=== PATIENT | male | born 1985 | race Caucasian/White ===

== ENCOUNTER 2019-01-08 08:22 | Outpatient (CLI) | payer OTHER ==
--- NOTE | 2019-01-08 10:54 | PET ---
Nuclear medicine FDG PET/CT: (Positron emission tomography and computed tomography) DATE: 01/08/2019 HISTORY: 33 year old male with "nodular sclerosis classical Hodgkin's lymphoma" subsequent scanning. Restaging . COMPARISON: 09/17/2016 TECHNIQUE: IV injection of F-18 fluorodeoxyglucose (FDG) dose: 13 mCi. PET scan and attenuation correction CT performed from skull base to proximal thighs. PET scan and attenuation correction CT thinner slices performed through head and neck. FINDINGS: SUV (standard uptake values) numbers given are maximum SUVs. QCLR used. There is no abnormally FDG avid lesions, either [place] or extranodal, in the neck, chest, abdomen, or pelvis. The previously demonstrated diffusely increased bone marrow uptake due to bone marrow stimulation med ications, has resolved. Attenuation correction CT demonstrates right-sided implantable vascular access port and cholecystecto my clips, but is otherwise normal. Deauville score 1. Complete response to therapy. IMPRESSION: Negative
== END 2019-01-08 08:23 | disposition home or self-care (01) ==
LOC: PET 08:22
PROVIDERS: ATTEND Internal Medicine Hematology & Oncology
DX: C81.12 Nodular sclerosis Hodgkin lymphoma, intrathoracic lymph nodes (principal)
CPT/HCPCS: 78815; A9552

== ENCOUNTER 2019-07-02 19:07 | Inpatient (IN) | payer OTHER ==
[~2019-07-02 19:07] MED LIST: Iopamidol-370 76% 500 ML 1 ML ONE
[2019-07-02 19:35] LABS: #Eosinphils 0.1 thou/uL (0.0-0.7); #Lymphocytes 1.5 thou/uL (1.20-3.40); #Neutrophils 14.2 thou/uL (1.40-6.50); %Basophils 0.2 % (0.0-1.0); %Eosinophils 0.9 % (0.0-10.0); %Lymphocytes 8.9 % (21.0-51.0); %Monocytes 5.8 % (0.0-10.0); %Neutrophils 84.3 % (42.0-75.0); Hemoglobin 17.9 g/dL (14.0-18.0); Mean Corpuscular HGB CONC 34.6 g/dL (32.0-36.0); Mean Corpuscular Volume 95.1 fL (78.0-98.0); Mean Platelet Volume 8.7 fL (7.4-10.4); Platelet Count 137 thou/uL (130-400); RBC Distribution Width 11.5 % (11.5-14.5); Red Blood Cell (RBC) Count 5.44 mill/uL (4.70-6.10); White Blood Cell (WBC) Count 16.8 thou/uL (4.8-10.8)
--- NOTE | 2019-07-02 19:47 | RAD ---
Chest one view HISTORY: Chest pain. COMPARISON: 05/03/2016. FINDINGS: Cardiac silhouette is magnified by projection. Pulmonary vasculature is unremarkable. Media stinum is midline with a right subclavian Port-A-Cath. No lobar consolidation or evidence of pneumothorax. IMPRESSION: No active cardiopulmonary abnormalities are demonstrated.
[2019-07-02 19:59] LABS: ALT (SGPT) 61 U/L (8-55); AST (SGOT) 23 U/L (5-34); Albumin 4.5 g/dL (3.5-5.0); Alkaline Phosphatase 72 U/L (40-110); Anion Gap 13 mmol/L (10-20); BUN (Urea Nitrogen) 12 mg/dL (8.9-20.6); Bilirubin, Total 2.6 mg/dL (0.2-1.2); CK (CPK) 68 U/L (30-200); Calc. Creatinine Clearance 0 mL/min (70-130); Calcium 9.4 mg/dL (7.8-10.44); Carbon Dioxide 22 mmol/L (22-29); Chloride 104 mmol/L (98-107); Estimated GFR-MDRD 85; Globulin 2.4 g/dL (2.4-3.5); Glucose 118 mg/dL (70-105); Lipase 264 U/L (8-78); Potassium 3.8 mmol/L (3.5-5.1); Protein, Total 6.9 g/dL (6.0-8.3); Sodium 135 mmol/L (136-145)
--- NOTE | 2019-07-02 22:03 | CT ---
CT abdomen and pelvis with IV contrast HISTORY: Left upper quadrant pain. FINDINGS: Mild atelectasis at the lung bases. Gallbladder is surgically absent. Small splenule lies i mmediately posterior to the spleen. There is stranding in the intra-abdominal fat of the left upper quadrant. Coronal images show that it extends to the upper margin of the pancreas but does not appear to arise from the pancreas. The fat stranding abuts the lateral aspect of the gastric fundus and extends inferiorly towards the upper left:. There is subtle circumferential wall thickening involving the splenic flexure of the colon and the left colon. The left upper quadrant fat stranding partially encircles the splenic flexure. No free air or significant free fluid. Urinary bladder is unremarkable. Degenerative changes lumbar spine with bilateral foraminal stenoses of the lowest 2 levels. IMPRESSION: Inflammation of the intra-abdominal fat of the left upper quadrant is favored to be assoc iated with long segment colitis most pronounced at the sigmoid colon and extending along the left colon. Cause is not evident.
[2019-07-02] MEDS ORDERED: Fentanyl 100 MCG/2 ML VIAL ONE (22:39)
[2019-07-02] MEDS ORDERED: metroNIDAZOLE 500 MG/100 ML BAG ONE (22:39)
[2019-07-02 23:06] LABS: Bilirubin Negative (Negative); Blood, Urine Negative (Negative); Clarity Clear (Clear); Glucose, Urine (Dipstick) Normal (Negative); Leukocyte Negative Leu/uL (Negative); Nitrite Negative (Negative); Protein, Urine (Dipstick) Negative (Neg-Trace); Urobilinogen Normal mg/dL (Less than 2)
[2019-07-03] MEDS ORDERED: Ondansetron ODT 4 MG TAB SL PRN (00:38)
[2019-07-03] MEDS ORDERED: Ondansetron PF 4 MG/2 ML Vial IVP PRN (00:38)
[2019-07-03] MEDS ORDERED: Sodium Chloride 0.9% 1,000 ML IV SCH ×2 (00:38→02:20)
[2019-07-03] MEDS ORDERED: Acetaminophen 325 MG TAB PO PRN ×2 (00:38→02:20)
[2019-07-03] MEDS ORDERED: HYDROcodone/Acetaminophen 5/325 mg Tablet PO PRN ×2 (00:38)
[2019-07-03 01:15] VITALS: BMI 32.1
[2019-07-03] MEDS ORDERED: Guaifenesin DM 100-10/5 ML UDCUP PO PRN (02:20)
[2019-07-03] MEDS ORDERED: Bisacodyl 10 MG SUPP PR PRN (02:20)
[2019-07-03] MEDS ORDERED: Ibuprofen 200 MG TAB PO PRN (02:20)
[2019-07-03] MEDS: Sodium Chloride 0.9% 1,000 ML IV SCH ×4 (02:32→17:57)
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
[2019-07-03] MEDS: HYDROcodone/Acetaminophen 5/325 mg Tablet PO PRN ×4 (04:36→18:38)
[2019-07-03 05:09] LABS: Amphetamine Not Detected (NotDetected); Barbiturates Screen Not Detected (NotDetected); Benzodiazepine Screen Not Detected (NotDetected); Cocaine Metabolite Screen Not Detected (NotDetected); Medtox Reader # READER 1; Methadone Not Detected (NotDetected); Methamphetamine Not Detected (NotDetected); Opiate Screen Detected (NotDetected); Phencyclidine (PCP) Not Detected (NotDetected); THC/Cannabinoid Screen Not Detected (NotDetected); Tricyclic Screen Not Detected (NotDetected)
[2019-07-03 05:10] LABS: Medtox Control Line Valid? VALID (VALID); Oxycodone Screen Not Detected (NotDetected)
[2019-07-03] MEDS: metroNIDAZOLE 500 MG in Premix Bag 1 BAG IVPB SCH ×3 (05:44→22:10)
[2019-07-03] MEDS ORDERED: metroNIDAZOLE 500 MG in Premix Bag 1 BAG IVPB SCH (06:00)
[2019-07-03 06:36] LABS: Anion Gap 9 mmol/L (10-20); BUN (Urea Nitrogen) 9 mg/dL (8.9-20.6); Calc. Creatinine Clearance 201 mL/min (70-130); Calcium 8.5 mg/dL (7.8-10.44); Carbon Dioxide 25 mmol/L (22-29); Chloride 105 mmol/L (98-107); Estimated GFR-MDRD Greater than 90; Glucose 107 mg/dL (70-105); Potassium 3.7 mmol/L (3.5-5.1); Sodium 135 mmol/L (136-145)
[2019-07-03 06:39] LABS: #Eosinphils 0.2 thou/uL (0.0-0.7); #Lymphocytes 1.1 thou/uL (1.20-3.40); #Monocytes 1.2 thou/uL (0.11-0.59); #Neutrophils 11.8 thou/uL (1.40-6.50); %Basophils 0.2 % (0.0-1.0); %Eosinophils 1.4 % (0.0-10.0); %Lymphocytes 7.9 % (21.0-51.0); %Monocytes 8.5 % (0.0-10.0); %Neutrophils 82.1 % (42.0-75.0); Band 9 % (5-11); Lymphocytes 6 % (21-51); MDiff Complete? YES; Mean Corpuscular HGB CONC 35.7 g/dL (32.0-36.0); Mean Corpuscular Hemoglobin 34.7 pg (27.0-31.0); Mean Corpuscular Volume 97.1 fL (78.0-98.0); Mean Platelet Volume 8.4 fL (7.4-10.4); Monocytes 7 % (0-10); Neutrophil 74 % (42-75); Platelet Count 105 thou/uL (130-400); Platelet Morphology Comment Appears Decreased; RBC Distribution Width 11.5 % (11.5-14.5); RBC Morphology Normal; Reactive Lymphocytes 4 % (0-10); Red Blood Cell (RBC) Count 4.62 mill/uL (4.70-6.10); White Blood Cell (WBC) Count 14.4 thou/uL (4.8-10.8)
[2019-07-03] MEDS ORDERED: Famotidine 20 MG TAB PO SCH (09:00)
[2019-07-03] MEDS: Enoxaparin Sodium 40 MG/0.4 ML SYRINGE SC SCH (09:40)
[2019-07-03] MEDS: Senokot S 8.6-50 MG TAB PO SCH ×2 (09:41→20:26)
--- NOTE | 2019-07-03 14:51 | PDOC.HOSPP ---
- Subjective Encounter Date: 07/03/19 Encounter Time: 10:45 Subjective: pt resting - jsut receiv'd pain med. tender on the Left abdomen. on BM today. - Objective Vital Signs & Weight: Vital Signs (12 hours) Temp Pulse Resp BP Pulse Ox 07/03/19 11:13 98.6 F 81 18 124/83 97 07/03/19 07:38 97.5 F L 84 18 132/85 94 L 07/03/19 04:30 99 F 81 18 121/81 96 Weight Admit Weight 250 lb Weight 250 lb I&O: 07/02/19 07/03/19 07/04/19 06:59 06:59 06:59 Output Total 725 Balance -725 Result Diagrams: 07/03/19 05:58 07/03/19 05:58 Hospitalist ROS - Medication Medications: Active Medications Generic Name Dose Route Start Last Admin Trade Name Freq PRN Reason Stop Dose Admin Hydrocodone Bitart/Acetaminophen 1 tab 07/03/19 02:20 07/03/19 14:42 [place] 5/325 PO 1 tab Q4H PRN Administration Moderate Pain (4-6) Enoxaparin Sodium 40 mg 07/03/19 09:00 07/03/19 09:40 Lovenox SC 40 mg 0900 YIMI Administration Famotidine 20 mg 07/03/19 09:00 07/03/19 09:40 Pepcid PO 20 mg BID YIMI Administration Ciprofloxacin/Dextrose 400 mg/ 200 mls @ 200 mls/hr 07/03/19 09:00 07/03/19 09:38 Device IVPB 200 mls Q12HR YIMI Administration Metronidazole 500 mg/ Device 100 mls @ 100 mls/hr 07/03/19 06:00 07/03/19 14: 41 IVPB 100 mls Q8HR YIMI Administration Sodium Chloride 1,000 mls @ 200 mls/hr 07/03/19 02:30 07/03/19 12:38 Normal Saline 0.9% IV 1,000 mls .Q5H YIMI Administration Ibuprofen 400 mg 07/03/19 02:20 07/03/19 07:14 Motrin PO 400 mg Q8H PRN Administration Mild Pain (1-3) Senna/Docusate Sodium 2 tab 07/03/19 09:00 07/03/19 09:41 Senokot S PO 2 tab BID YIMI Administration Sodium Chloride 10 ml 07/03/19 09:00 07/03/19 09:27 Flush - Normal Saline IVF Not Given Q12HR YIMI - Exam General Appearance: NAD Eye: PERRL, anicteric sclera ENT: normocephalic atraumatic Neck: supple, no thyromegaly Heart: RRR, normal peripheral pulses Respiratory: CTAB, normal chest expansion Gastrointestinal: tender to palpation Skin: normal turgor Neurological: cranial nerve grossly intact, no focal deficits Hosp A/P - Plan L sided colitis :Leukocytosis Acute pancreatitis --on cipro and flagyl --aggerssive hdyration -CLD -analgesics - follow w.. GI Hx of Hodgkins -on remission
[2019-07-03] MEDS ORDERED: Pantoprazole 40 MG VIAL IVP SCH (15:00)
[2019-07-04] MEDS: Sodium Chloride 0.9% 1,000 ML IV SCH ×4 (00:57→12:43)
[2019-07-04] MEDS: metroNIDAZOLE 500 MG in Premix Bag 1 BAG IVPB SCH ×3 (05:00→22:58)
[2019-07-04] MEDS: HYDROcodone/Acetaminophen 5/325 mg Tablet PO PRN ×2 (05:02→13:05)
[2019-07-04 05:13] LABS: #Eosinphils 0.3 thou/uL (0.0-0.7); #Lymphocytes 1.3 thou/uL (1.20-3.40); #Monocytes 1.3 thou/uL (0.11-0.59); #Neutrophils 10.5 thou/uL (1.40-6.50); %Lymphocytes 9.4 % (21.0-51.0); %Monocytes 9.9 % (0.0-10.0); %Neutrophils 78.7 % (42.0-75.0); Hemoglobin 14.9 g/dL (14.0-18.0); Mean Corpuscular HGB CONC 36.2 g/dL (32.0-36.0); Mean Corpuscular Hemoglobin 35.1 pg (27.0-31.0); Mean Corpuscular Volume 96.8 fL (78.0-98.0); Mean Platelet Volume 8.3 fL (7.4-10.4); Platelet Count 91 thou/uL (130-400); RBC Distribution Width 11.5 % (11.5-14.5); Red Blood Cell (RBC) Count 4.25 mill/uL (4.70-6.10); White Blood Cell (WBC) Count 13.4 thou/uL (4.8-10.8)
[2019-07-04 05:34] LABS: ALT (SGPT) 38 U/L (8-55); AST (SGOT) 18 U/L (5-34); Albumin 3.4 g/dL (3.5-5.0); Alkaline Phosphatase 57 U/L (40-110); Anion Gap 10 mmol/L (10-20); BUN (Urea Nitrogen) 7 mg/dL (8.9-20.6); Bilirubin, Total 2.5 mg/dL (0.2-1.2); Calc. Creatinine Clearance 199 mL/min (70-130); Calcium 8.5 mg/dL (7.8-10.44); Carbon Dioxide 24 mmol/L (22-29); Chloride 105 mmol/L (98-107); Estimated GFR-MDRD Greater than 90; Globulin 2.3 g/dL (2.4-3.5); Glucose 97 mg/dL (70-105); Lipase 62 U/L (8-78); Potassium 3.8 mmol/L (3.5-5.1); Protein, Total 5.7 g/dL (6.0-8.3); Sodium 135 mmol/L (136-145)
[2019-07-04] MEDS: Senokot S 8.6-50 MG TAB PO SCH ×2 (08:32→20:31)
[2019-07-04] MEDS: Enoxaparin Sodium 40 MG/0.4 ML SYRINGE SC SCH (08:32)
[2019-07-04] MEDS: Pantoprazole 40 MG VIAL IVP SCH (08:36)
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
--- NOTE | 2019-07-04 12:35 | PRG ---
DATE OF SERVICE: 07/04/2019 SUBJECTIVE: Mr. Latham states his pain is down to about 1. He is off pain medicine. He feels a lot better. The nurse asked if we can decrease his IV fluids as it is going at 200 an hour. OBJECTIVE: VITAL SIGNS: Overnight, T-max 100, presently 99.3. Pulse 96, blood pressure 130/83. ABDOMEN: Soft. There is mild tenderness in the left upper quadrant. There is no rebound or guarding. LABORATORY DATA: White count 13.4, hemoglobin 14, platelet count 91,000. Sodium 135, potassium 3.8. Liver function tests normal except for a bilirubin of 2.5. Lipase is down to 62. ASSESSMENT: Inflammation in the descending and splenic flexure region of the colon with some fat stranding. He had mildly elevated lipase that has resolved and his pain is better. Differential diagnosis includes a colitis versus diverticulitis. RECOMMENDATIONS: 1. Decrease IV fluids to 70 mL an hour. He is tolerating a soft diet. 2. If he continues to improve, could go home tomorrow, empiric treatment for diverticulitis and to have an outpatient colonoscopy in 4 to 6 weeks. We will follow along with you. Job ID: [id number]
--- NOTE | 2019-07-04 13:02 | PDOC.HOSPP ---
- Subjective Encounter Date: 07/04/19 Encounter Time: 12:59 Subjective: abd pain improved, some pain in L neck with inspiration - Objective Vital Signs & Weight: Vital Signs (12 hours) Temp Pulse Resp BP Pulse Ox 07/04/19 11:42 99.3 F 96 16 130/83 94 L 07/04/19 07:20 98.6 F 86 16 127/84 97 07/04/19 04:35 99.5 F 91 18 127/82 97 Weight Admit Weight 250 lb Weight 250 lb I&O: 07/03/19 07/04/19 07/05/19 06:59 06:59 06:59 Intake Total 5560 Output Total 725 Balance -725 5560 Result Diagrams: 07/04/19 04:59 07/04/19 04:59 Hospitalist ROS - Medication Medications: Active Medications Generic Name Dose Route Start Last Admin Trade Name Freq PRN Reason Stop Dose Admin Acetaminophen 650 mg 07/03/19 02:20 07/03/19 23:52 Tylenol PO 650 mg Q4H PRN Administration Headache/Fever/Mild Pain (1-3) Hydrocodone Bitart/Acetaminophen 1 tab 07/03/19 02:20 07/04/19 05:02 [place] 5/325 PO 1 tab Q4H PRN Administration Moderate Pain (4-6) Enoxaparin Sodium 40 mg 07/03/19 09:00 07/04/19 08:32 Lovenox SC 40 mg 0900 YIMI Administration Ciprofloxacin/Dextrose 400 mg/ 200 mls @ 200 mls/hr 07/03/19 09:00 07/04/19 08:30 Device IVPB 200 mls Q12HR YIMI Administration Metronidazole 500 mg/ Device 100 mls @ 100 mls/hr 07/03/19 06:00 07/04/19 05: 00 IVPB 100 mls Q8HR YIMI Administration Sodium Chloride 1,000 mls @ 75 mls/hr 07/04/19 12:05 07/04/19 12:43 Normal Saline 0.9% IV Not Given .[id number] YIMI Pantoprazole Sodium 40 mg 07/04/19 09:00 07/04/19 08:36 Protonix IVP 40 mg DAILY YIMI Administration Senna/Docusate Sodium 2 tab 07/03/19 09:00 07/04/19 08:32 Senokot S PO 2 tab BID YIMI Administration Sodium Chloride 10 ml 07/03/19 09:00 07/04/19 09:15 Flush - Normal Saline IVF Not Given Q12HR YIMI - Exam General Appearance: awake alert Neck: no JVD Heart: RRR, no murmur Respiratory: CTAB Gastrointestinal: normal bowel sounds, tender to palpation Gastrointestinal - other findings: mild generalized tenderness Extremities: no edema Hosp A/P (1) Colitis Code(s): K52.9 - NONINFECTIVE GASTROENTERITIS AND COLITIS, UNSPECIFIED Status : Acute (2) Abdominal pain Code(s): R10.9 - UNSPECIFIED ABDOMINAL PAIN Status: Acute Qualifiers: Abdominal location: right upper quadrant Qualified Code(s): R10.11 - Right upper quadrant pain (3) Neck pain Code(s): M54.2 - CERVICALGIA Status: Acute - Plan cont antibx iv cxr cont analgesia
--- NOTE | 2019-07-04 14:34 | RAD ---
EXAM: Two views chest PROVIDED CLINICAL HISTORY: Pleuritic chest pain. COMPARISON: 07/02/2019 FINDINGS: Right subclavian Mediport catheter remains in place. Cardiac silhouettes the upper limits of normal. Pulmonary vasculature is within normal limits. There has been interval development of a small left pleural effusion and associated atelectasis. The right lung is clear. No other interval change. IMPRESSION: Interval development of small left pleural effusion and atelectasis left lung base. No pneumothorax i s appreciated on this exam.
--- NOTE | 2019-07-04 15:29 | PDOC.EVN ---
Event Note - Event Note Event Note: CXR claer
[2019-07-05] MEDS: Sodium Chloride 0.9% 1,000 ML IV SCH (00:35)
[2019-07-05] MEDS: metroNIDAZOLE 500 MG in Premix Bag 1 BAG IVPB SCH ×2 (05:07→13:29)
[2019-07-05] MEDS: HYDROcodone/Acetaminophen 5/325 mg Tablet PO PRN ×2 (05:07→11:45)
[2019-07-05 05:31] LABS: ALT (SGPT) 34 U/L (8-55); AST (SGOT) 16 U/L (5-34); Albumin 3.4 g/dL (3.5-5.0); Alkaline Phosphatase 66 U/L (40-110); Bilirubin, Direct 0.8 mg/dL (0.1-0.3); Bilirubin, Total 1.6 mg/dL (0.2-1.2)
[2019-07-05 05:37] LABS: Hemoglobin 14.5 g/dL (14.0-18.0); MDiff Complete? YES; Mean Corpuscular HGB CONC 34.4 g/dL (32.0-36.0); Mean Corpuscular Hemoglobin 33.5 pg (27.0-31.0); Mean Corpuscular Volume 97.3 fL (78.0-98.0); Mean Platelet Volume 8.3 fL (7.4-10.4); Platelet Count 98 thou/uL (130-400); RBC Distribution Width 11.4 % (11.5-14.5); Red Blood Cell (RBC) Count 4.33 mill/uL (4.70-6.10); White Blood Cell (WBC) Count 12.7 thou/uL (4.8-10.8)
[2019-07-05 05:38] LABS: Band 1 % (5-11); Eosinophils 2 % (0-10); Lymphocytes 7 % (21-51); Monocytes 7 % (0-10); Neutrophil 83 % (42-75); Platelet Morphology Comment Appears Decreased
[2019-07-05 08:10] VITALS: BP 124/83
[2019-07-05] MEDS: Senokot S 8.6-50 MG TAB PO SCH (09:03)
[2019-07-05] MEDS: Pantoprazole 40 MG VIAL IVP SCH (09:04)
[2019-07-05] MEDS: Enoxaparin Sodium 40 MG/0.4 ML SYRINGE SC SCH (10:56)
--- NOTE | 2019-07-05 11:20 | PRG ---
DATE OF SERVICE: 07/05/2019 SUBJECTIVE: Mr. Latham is feeling better. He ate regular food with no difficulty. He has been up and around and his pain is resolved. OBJECTIVE: VITAL SIGNS: Temperature 97, pulse 80, blood pressure 124/83. ABDOMEN: Soft, nontender. White count is down to 12.7, hemoglobin 14, platelet count 98,000. Bilirubin is 1.6, direct 0.8. Liver function tests otherwise normal. ASSESSMENT: Self-limited colitis versus diverticulitis. I favor the latter. Although he is quite young. This is noted on CAT scan. It shows left upper quadrant pain and leukocytosis which is improved. RECOMMENDATIONS: 1. I think he can go home on a low-fiber diet with antibiotics to complete a 10 day course of Levaquin and Flagyl will be reasonable. He should have a colonoscopy in 3-4 weeks to make sure he is getting better. I have asked to follow up in our office in a couple of weeks. If he has recurrent pain or fever, he will need to call us immediately or come back to the emergency room. He has been given my number. 2. Mild thrombocytopenia, etiology is unclear, it was not present on admission, although he did have a little bit low normal level of 137. This could be antibiotic associated or related to his illness. We will see him in followup in a few weeks. I have talked with Dr. Leblanc. Job ID: [id number]
--- NOTE | 2019-07-05 11:45 | DIS ---
DATE OF ADMISSION: 07/03/2019 DATE OF DISCHARGE: 07/05/2019 PRIMARY CARE PHYSICIAN: None. DISPOSITION: Discharged home. FINAL DIAGNOSES: 1. Noninfective colitis. 2. Abdominal pain, resolved. 3. Neck pain. DISCHARGE MEDICINES: 1. Cipro 500 mg p.o. b.i.d. 2. Flagyl 500 mg p.o. t.i.d. ALLERGIES: MORPHINE, CAUSES ANAPHYLAXIS. CODE STATUS: Full. PENDING AT TIME OF DISCHARGE: Nothing. DIET: As tolerated. HOSPITAL COURSE: The patient was admitted with abdominal pain through [facility] to the Hospitalist Service. Abdominal pelvis CT revealed colitis of the splenic flexure to the descending colon. The patient was seen in consultation by Dr. Johnny Kurtz, Gastroenterology, and was put on IV antibiotics. He is currently doing well. He had neck pain during his hospitalization. Had a chest x-ray, which was clear. The pain was described as pleuritic. His initial white count was 16.8, that has dropped down to 12.7. Hemoglobin 17.9, now 14.5. Initial platelet count a 137,000, now 98,000. Comprehensive metabolic profile showed a mild decreased sodium at 135, which was constant. An elevated bilirubin of 2.6, came down to 2.5, down to 1.6. His transaminases were unremarkable. Electrolytes were otherwise unremarkable. Urine was clear. Toxicology showed opiates only. The patient currently has a benign abdomen, passing stool. He is being discharged. He has been advised to find a PCP and followup in 3 days. He states he will be able to do that. He and Dr. Kurtz have exchanged phone numbers. Outpatient followup with a colonoscopy in the future will be done. Job ID: [id number]
[2019-07-05 12:03] VITALS: TEMP 99.6
--- NOTE | 2019-07-06 22:58 | PQF ---
[facility]OT[facility] C MD [id number] [id number] CLINICAL DOCUMENTATION CLARIFICATION FORM: POST DISCHARGE Addendum to original discharge summary date: ____ Late entry note date: __ DATE:07/06/2019 ATTN:MARIA LUISA DOBSON MD Please exercise your independent, professional judgment in responding to the clarification form. Clinical indicators are provided on the bottom of this form for your review Please check appropriate box(s) to clarify if the following diagnosis has been ruled in or ruled out: Acute pancreatitis [ ] Ruled in diagnosis [ ] Continue to treat [ ] Resolved [ x] Ruled out diagnosis [ ] Cannot rule out diagnosis [ ] Other diagnosis [ ] Unable to determine For continuity of documentation, please document condition throughout progress notes and discharge summary. Thank You. CLINICAL INDICATORS - SIGNS / SYMPTOMS / LABS Acute pancreatitis-Documented in hospitalist progress note on 07/03 by Danyell Berrios Lipase is 264-Documented in H&P on 07/03 by Lena Stubbs Patient comes in with abrupt onset of left upper quadrant pain.Nonradiating to the back associated with nausea and vomiting with mild leukocytosis mild bilirubin elevation and lipase elevation with inflammation around the splenic flexure of the colon and some of the fat surrounding this abutting the gastric wall and the tail of the pancreas. The radiologist did not feel pancreatitis was overtly present-Documented in consultation report on 07/03 by Johnny Kurtz MD [employer] Inflammation around the splenic flexure of the colon and some of the fat surrounding this abutting the gastric wall and the tail of the pancreas. The radiologist did not feel pancreatitis was overtly present-Documented in consultation report on 07/03 by Johnny Kurtz MD TREATMENTS On cipro and flagyl-Documented in hospitalist progress note on 07/03 by Gurusamy , Sound[place] Aggressive hydration -Documented in hospitalist progress note on 07/03 by Danyell Berrios Repeat lipase tomorrow. Continue IV fluids at 200 an hour in case he dose have a component of pancreatitis. continue the IV antibiotics-Documented in consultation report on 07/03 by Johnny Kurtz MD [employer] (This form is maintained as a part of the permanent medical record) 2014 [employer]. All Rights Reserved [email or web address] [phone] [email or web address]
== END 2019-07-05 13:34 | disposition home or self-care (01) | DRG 392 ==
LOC: ERS 19:07 → SURG B 07-03 00:15 → OBSVTOIN 07-03 00:15
PROVIDERS: ADMIT Internal Medicine; ATTEND Internal Medicine
DX: K52.9 Noninfective gastroenteritis and colitis, unspecified (principal); C81.90 Hodgkin lymphoma, unspecified, unspecified site; M54.2 Cervicalgia; Z88.5 Allergy status to narcotic agent; Z90.49 Acquired absence of other specified parts of digestive tract; F32.9 Major depressive disorder, single episode, unspecified; F17.210 Nicotine dependence, cigarettes, uncomplicated; Z82.49 Family history of ischemic heart disease and other diseases of the circulatory system; Z80.0 Family history of malignant neoplasm of digestive organs; Z80.8 Family history of malignant neoplasm of other organs or systems; D69.6 Thrombocytopenia, unspecified
CPT/HCPCS: 36415; 71045; 71046; 74177; 80048; 80053; 80076; 80306; 81003; 82550; 83690; 84484; 85025; 93005; 96361; 96365; 96375; C9113; J0744; J1650; J3010; Q9967